=== PATIENT | male | born 1965 | race Caucasian/White ===

== ENCOUNTER → 2017-04-30 | Outpatient (CLI) | payer MEDICARE ==
[~2017-04-30] VITALS: Ht 170.2 cm; Wt 127.0 kg
== END ==
LOC: OPSV 08:32
DX: M31.30 Wegener's granulomatosis without renal involvement (principal); Z79.899 Other long term (current) drug therapy
CPT/HCPCS: 36415; 96365; 96366; J1745; J2930; J7030; J9310; Q0163

== ENCOUNTER → 2017-05-14 | Outpatient (CLI) | payer MEDICARE ==
[~2017-05-14] VITALS: Ht 170.2 cm; Wt 127.0 kg
== END ==
LOC: OPSV 08:57
DX: M31.30 Wegener's granulomatosis without renal involvement (principal); E11.9 Type 2 diabetes mellitus without complications; R93.8 Abnormal findings on diagnostic imaging of other specified body structures; H21.569 Pupillary abnormality, unspecified eye; H53.001 Unspecified amblyopia, right eye; H54.40 Blindness, one eye, unspecified eye; H26.9 Unspecified cataract; H54.8 Legal blindness, as defined in USA; R51 Headache; R06.02 Shortness of breath; H46.9 Unspecified optic neuritis; H15.8 Other disorders of sclera; R76.8 Other specified abnormal immunological findings in serum; H35.0 Background retinopathy and retinal vascular changes; H54.62 Unqualified visual loss, left eye, normal vision right eye; H53.40 Unspecified visual field defects; H54.3 Unqualified visual loss, both eyes; Z86.39 Personal history of other endocrine, nutritional and metabolic disease; Z86.2 Personal history of diseases of the blood and blood-forming organs and certain disorders involving the immune mechanism
CPT/HCPCS: 96365; 96366; 96375; J2930; J7030; J9310; Q0163